=== PATIENT | female | born 1995 ===

== ENCOUNTER → 2025-04-25 | Outpatient (CLI) | payer OTHER ==
[2025-04-25 11:23] LABS: Source, Urine Clean Catch
[2025-04-25 11:33] LABS: Amorphous Light (0-Heavy); Bacteria Few /hpf; Mucus Heavy (0-Heavy); Squamous Epithelial Cells Mod /hpf (Few)
== END | disposition home or self-care (01) ==
LOC: LAB 11:19 → LAB SHORT 11:19
DX: R31.9 Hematuria, unspecified (principal)
CPT/HCPCS: 81015; 87086